=== PATIENT | male | born 2000 | race Caucasian/White ===

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

== ENCOUNTER 2020-05-17 09:50 | Emergency (ER) | payer BC ==
[~2020-05-17] VITALS: Ht 188 cm; Wt 84.8 kg
[2020-05-17] MEDS ORDERED: HYOS0.1265 SL (10:22)
[2020-05-17] MEDS ORDERED: FAMO-63 PO (10:22)
[2020-05-17] MEDS ORDERED: ONDA4TAB12 PO (10:22)
--- NOTE | 2020-05-17 10:22 | PHYS DOC ---
Past History Past Medical History: No Pertinent History Past Surgical History: Other Smoking: Non-smoker Alcohol Use: None Drug Use: None General Adult EDM: Chief Complaint: ABDOMINAL PAIN HPI: HPI: Patient is a [age] year old [sex] who presents with [] Review of Systems: Review of Systems: Constitutional: Denies fever or chills Eyes: Denies redness or eye pain HENT: Denies nasal congestion or sore throat Respiratory: Denies cough or shortness of breath Cardiovascular: Denies chest pain or palpitations GI: Denies abdominal pain, nausea, or vomiting : Denies dysuria or hematuria Musculoskeletal: Denies back pain or joint pain Integument: Denies rash or skin lesions Neurologic: Denies headache, focal weakness or sensory changes Complete systems were reviewed and found to be within normal limits, except as documented in this note. Allergies: Allergies: Allergies Coded Allergies Type Severity Reaction Last Updated Verified No Known Allergies Allergy Unknown 12/24/17 Yes Physical Exam: PE: Constitutional: Well developed, well nourished, no acute distress, non-toxic appearance HENT: Normocephalic, atraumatic Eyes: PERRL, EOMI, conjunctiva normal, no discharge Neck: Normal range of motion, no tenderness, supple Lungs & Thorax: No respiratory distress, equal chest rise and fall Abdomen: Soft, no tenderness Skin: Warm, dry, no erythema, no rash Back: No tenderness, no CVA tenderness Extremities: No tenderness, ROM intact, no edema Neurologic: Alert and oriented X 3, normal motor function, normal sensory function, no focal deficits noted Psychologic: Affect normal, judgment normal EKG: EKG: [] Radiology/Procedures: Radiology/Procedures: [] Course & Med Decision Making: Course & Med Decision Making Pertinent Labs and Imaging studies reviewed. (See chart for details) Patient stable for discharge with outpatient follow-up with PCP. Discussed fi ndings and plan with patient, who acknowledges understanding and agreement. Brenda Disclaimer: Brenda Disclaimer: This electronic medical record was generated, in whole or in part, using a voice recognition dictation system. Departure Departure: Impression: Primary Impression: Abdominal pain Qualified Codes: R10.84 - Generalized abdominal pain Additional Impressions: Nausea vomiting and diarrhea Opiate withdrawal Disposition: 01 DC HOME SELF CARE/HOMELESS Condition: STABLE Referrals: KURT ELIZONDO MD (PCP) KAT STROUD MD Patient Instructions: Abdominal Pain, [id number], Alcohol and Drug Addiction, Finding Treatment, Diarrhea, [id number], Diet for Diarrhea, Adult, Narcotic Withdrawal, Nausea and Vomiting, [id number] Additional Instructions: Please call [facility] at to seek help for your mental health and/or drug/alcohol abuse. Scripts Hyoscyamine Sulfate (LEVSIN-SL) 0.125 Mg Tab.subl 0.125 MG SL Q4-6HRS PRN for PAIN, #14 TAB Prov: FLAKITO CHATMAN DO 05/17/20 Famotidine (PEPCID) 20 Mg Tablet 1 TAB PO BID for gastritis, #20 TAB Prov: FLAKITO CHATMAN DO 05/17/20 Ondansetron (ONDANSETRON ODT) 4 Mg Tab.rapdis 1 TAB PO PRN Q6-8HRS PRN for NAUSEA, #16 TAB Prov: FLAKITO CHATMAN DO 05/17/20 FLAKITO CHATMAN DO May 17, 2020 10:22
[2020-05-17] MEDS ORDERED: FAMOTIDINE 20 MG/2 ML VIAL IVP ONE (10:30)
[2020-05-17] MEDS ORDERED: KETOROLAC 15 MG/ML VIAL. IVP ONE (10:30)
[2020-05-17] MEDS ORDERED: IV NORMAL SALINE 1,000ML 1,000 ML IV ONE (10:30)
[2020-05-17] MEDS ORDERED: ONDANSETRON PF 4 MG/2 ML VIAL. IVP ONE (10:30)
[2020-05-17 11:20] LABS: BASO % 0 % (0-3); EOS % 0 % (0-3); HEMOGLOBIN 16.5 g/dL (13.0-17.5); LYMPH # 1.3 x10^3/uL (1.0-4.8); LYMPH % 10 % (24-48); MEAN CORPUSCULAR HEMOGLOBIN 29 pg (25-35); MEAN CORPUSCULAR HGB CONC 33 g/dL (31-37); MEAN CORPUSCULAR VOLUME 88 fL (79-100); MONO # 0.7 x10^3/uL (0.0-1.1); MONO % 5 % (0-9); NEUT # 11.3 x10^3uL (1.8-7.7); NEUT % 84 % (31-73); PLATELET COUNT 196 x10^3/uL (140-400); RED BLOOD COUNT 5.71 x10^6/uL (4.30-5.70); RED CELL DISTRIBUTION WIDTH 13.4 % (11.5-14.5); WHITE BLOOD COUNT 13.4 x10^3/uL (4.0-11.0)
[2020-05-17 11:33] LABS: CALCIUM 9.6 mg/dL (8.5-10.1); GFR 95.3
[2020-05-17 11:44] LABS: ALBUMIN 4.1 g/dL (3.4-5.0); ALBUMIN/GLOBULIN RATIO 1.1 (1.0-1.7); TOTAL BILIRUBIN 1.3 mg/dL (0.2-1.0); TOTAL PROTEIN 7.9 g/dL (6.4-8.2)
[2020-05-17 12:07] LABS: BARBITURATES NEG (NEG); BENZODIAZEPINES NEG (NEG); CANNABINOIDS POS (NEG); COCAINE NEG (NEG); METHADONE NEG (NEG); OPIATES NEG (NEG); PHENCYCLIDINE NEG (NEG)
[2020-05-17 12:15] LABS: AMPHETAMINE/METHAMPHETAMINE NEG (NEG)
[2020-05-17 12:31] LABS: CLARITY,URINE CLEAR; COLOR,URINE YELLOW; GLUCOSE,URINE NEG (NEG)
[2020-05-17 12:32] LABS: BACTERIA,URINE 0 /HPF (0-FEW); BILIRUBIN,URINE SMALL (NEG); NITRITE,URINE NEG (NEG); RBC,URINE OCC /HPF (0-2); SQUAMOUS EPITHELIAL CELL,UR OCC /LPF; UROBILINOGEN,URINE 0.2 mg/dL (0.2 mg/dL)
[2020-05-17 13:00] VITALS: BP 138/70
== END 2020-05-17 13:06 | disposition home or self-care (01) ==
LOC: ER 09:50
DX: F11.23 Opioid dependence with withdrawal (principal); R10.84 Generalized abdominal pain; R11.2 Nausea with vomiting, unspecified; R19.7 Diarrhea, unspecified
CPT/HCPCS: 36415; 80053; 80307; 81001; 83690; 83735; 85025; 96361; 96374; 96375; 99284; G0480; J1885; J2405; J3490; J7030

== ENCOUNTER 2021-04-02 12:36 | Emergency (ER) | payer BC ==
[~2021-04-02] VITALS: Ht 188 cm; Wt 72.0 kg
[~2021-04-02 12:36] MED LIST: FAMO-63 PO; HYOS0.1265 SL; ONDA4TAB12 PO
[2021-04-02 14:04] LABS: INFLUENZA A PATIENT NEGATIVE (NEGATIVE); INFLUENZA B PATIENT NEGATIVE (NEGATIVE)
--- NOTE | 2021-04-02 15:30 | PHYS DOC ---
Past History Past Medical History: No Pertinent History Past Surgical History: No Surgical History Smoking: Non-smoker Alcohol Use: None Drug Use: Marijuana, Opiates Adult General Chief Complaint Chief Complaint: GENERALIZED BODY ACHES HPI HPI Patient is a 21 year old male who presents to the emergency department today requesting assistance with opiate addiction. He states he started using fentanyl about 12 months ago. He uses 12 to 15 tablets daily. He has stopped using these on prior days and states his withdrawal symptoms are feeling anxious, body aches, diarrhea. He does not have a history of seizures either before starting his addiction or currently. He has no other health conditions. Today, he reports it has been 24 hours since he last used. He is complaining of overall feeling poorly. No acute shortness of breath, chest pain, palpitations. No nausea or vomiting. He has been having few episodes of diarrhea. Review of Systems Review of Systems Constitutional: Denies fever or chills Eyes: Denies change in visual acuity HENT: Denies nasal congestion or sore throat Respiratory: Denies cough or shortness of breath Cardiovascular: No additional information not addressed in HPI GI: Denies abdominal pain. See HPI : Denies dysuria or hematuria Musculoskeletal: myalgias Integument: Denies rash or skin lesions Neurologic: headaches All other systems were reviewed and found to be within normal limits, except as documented in this note. Allergies Allergies Allergies Coded Allergies Type Severity Reaction Last Updated Verified No Known Allergies Allergy Unknown 12/24/17 Yes Physical Exam Physical Exam Constitutional: Well developed, well nourished, no acute distress, non-toxic appearance. HENT: Normocephalic, atraumatic, bilateral external ears normal, oropharynx moist, no oral exudates, nose normal. Eyes: PERRLA, EOMI, conjunctiva normal, no discharge. Neck: Normal range of motion, no tenderness, supple, no stridor. Cardiovascular:Heart rate regular rhythm, no murmur Lungs & Thorax: Bilateral breath sounds clear to auscultation Skin: Warm, dry, no erythema, no rash. Back: Normal range of motion Neurologic: Alert and oriented X 3, normal motor function, normal sensory function, no focal deficits noted. Psychologic: Affect normal, not suicidal Current Patient Data Vital Signs Vital Signs Date Time Temp Pulse Resp B/P (MAP) Pulse Ox O2 Delivery O2 Flow Rate FiO2 04/02/21 13:15 98.5 91 18 125/74 (91) 97 Room Air Lab Results Laboratory Tests Test 04/02/21 13:20 Influenza Type A (Rapid) Negative (NEGATIVE) Influenza Type B (Rapid) Negative (NEGATIVE) SARS-CoV-2 Antigen (Rapid) Negative (NEGATIVE) EKG EKG [] Radiology/Procedures Radiology/Procedures [] Heart Score C/O Chest Pain: No Risk Factors: Risk Factors: DM, Current or recent (<one month) smoker, HTN, HLP, family history of CAD, obesity. Risk Scores: Risk Factors: DM, Current or recent (<one month) smoker, HTN, HLP, family history of CAD, obesity. Course & Med Decision Making Course & Med Decision Making Pertinent Labs and Imaging studies reviewed. (See chart for details) 16:10: Patient is evaluated on arrival to his room. He is requesting inpatient assistance with opiate withdrawal. Has been using fentanyl over the last year. His vital signs are normal he is in no distress. He is well-appearing. Does not require hospitalization at this time. COVID test is completed and is negative. I did reach out to local facilities and there is availability at the [facility] in [facility]. Patient was referred to go there directly from the emergency department. He is accompanied by his mother who will take him straight there. He does not have suicidal homicidal thoughts. No hallucinations. No seizure disorder. He is given p.o. clonidine in the ER and is given a patch to wear over the next 3 days. Dragon Disclaimer Dragon Disclaimer This electronic medical record was generated, in whole or in part, using a voice recognition dictation system. Departure Departure: Disposition: HOME / SELF CARE / HOMELESS Condition: GOOD Referrals: KURT ELIZONDO MD (PCP) Patient Instructions: Opiate Dependence LUIS ARMANDO DOMÍGNUEZ DO Apr 02, 2021 15:30
[2021-04-02] MEDS ORDERED: cloNIDine TTS-2 1 PATCH PATCH TD ONE ×2 (15:43→16:00)
[2021-04-02 16:27] VITALS: BP 122/67
== END 2021-04-02 16:28 | disposition home or self-care (01) ==
LOC: ER 12:36
DX: F11.20 Opioid dependence, uncomplicated (principal); M79.10 Myalgia, unspecified site; R19.7 Diarrhea, unspecified
CPT/HCPCS: 99283